=== PATIENT | female | born 1975 | race Caucasian/White ===

== ENCOUNTER 2024-01-03 10:58 | Emergency (ER) | payer OTHER, BC, SELFPAY ==
[2024-01-03 11:07] VITALS: BP 123/83; PULSE 104; RESP 22; TEMP 36.7; O2SAT 97; BMI 31.0
--- NOTE | 2024-01-03 11:14 | ED_ITS ---
HPI - Extremity Injury (Lower) General Time Seen by Provider: 11:14 Date Seen: 01/03/24 Chief Complaint: Extremity Pain/Injury, Lower Stated Complaint: fall/ bi-lateral ankle injury Time Seen by Provider: 01/03/24 11:13 Source: patient and RN notes reviewed Mode of arrival: wheelchair Limitations: no limitations History of Present Illness HPI Narrative: Tata is a 48-year-old female coming in with bilateral ankle pain, left greater than right. Just prior to arrival she missed a step going down stairs and when she landed, felt a snap in left ankle, injured the right ankle as well. She put ice on these immediately. Nothing else was injured, did not hit her head, no chest pain, no chest wall pain, no arm pain. She did not injure anything else. Related Data Home Medications ?Medication ?Instructions ?Recorded ?Confirmed bupropion HCl PO 01/03/24 escitalopram oxalate 20 mg tablet 20 mg PO DAILY 01/03/24 01/03/24 (Lexapro) Allergies Allergy/AdvReac Type Severity Reaction Status Date / Time No Known Drug Allergies Allergy Verified 01/03/24 11:11 Review of Systems Narrative: As per HPI. PFSH PFS Social History Smoking Status: Never smoker Do you use any of these nicotine containing products: None Non-prescribed substance use: denies use service: Yes Exam Const: Vital Signs, click to edit/add: Vital Signs - 24 hr 01/03/24 11:07 Temperature 98.1 F Pulse Rate [Pulse Oximeter] 104 H Respiratory Rate 22 Blood Pressure [Le ft Upper Arm] 123/83 Pulse Oximetry 97 Oxygen Delivery Me thod Room Air Tata is a very pleasant 48-year-old female that is mildly tearful but alert, interactive, no apparent distress. She has obvious lateral bruising and swelling over the lateral malleolus on the left ankle. There is mild swelling anterior to her lateral malleolus on the right ankle. She does demonstrate some mild range of motion the right ankle, both have intact pulses in normal distal sensation. She is definitely swollen, does not want to move her left ankle. There is no actual joint effusion along the anterior ankle mortise. She denies pain above the ankles into the lower legs or knees, pain is limited to her ankles. Documenting provider has reviewed patient's vital signs: yes Course Course ED Course: Will obtain x-ray imaging to rule out fractures. Do suspect there is likely a fracture in her left ankle, right certainly could easily be a sprain. Reevaluation(s) Time of Reevaluation #1: 12:44 Reevaluation #1: Have reviewed the x-ray findings with patient. There are no active fractures noted. She has bilateral lateral sprains, left worse than right. She states her right ankle really isn't even bothering her anymore. She does have significant swelling ecchymosis over the lateral malleolus on the left ankle. She is having quite a bit of pain, we will see if she drives benefit from the cam walker. Vital Signs Vital signs: Initial Vital Signs Temperature 98.1 F 01/03/24 11:07 Temperature Source Temporal Artery Scan 01/03/24 11:07 Pulse Rate 104 H 01/03/24 11:07 Pulse Rhythm Regular 01/03/24 11:07 Respiratory Rate 22 01/03/24 11:07 Blood Pressure 123/83 01/03/24 11:07 Blood Pressure Mean 96 01/03/24 11:07 Blood Pressure Position Sitting 01/03/24 11:07 Pulse Oximetry 97 01/03/24 11:07 Oxygen Delivery Method Room Air 01/03/24 11:07 Vital Signs Temperature 98.1 F 01/03/24 11:07 Pulse Rate 104 H 01/03/24 11:07 Respiratory Rate 22 01/03/24 11:07 Blood Pressure 123/83 01/03/24 11:07 Pulse Oximetry 97 01/03/24 11:07 Oxygen Delivery Method Room Air 01/03/24 11:07 Temperature 98.1 F 01/03/24 11:07 Pulse Rate 104 H 01/03/24 11:07 Respiratory Rate 22 01/03/24 11:07 Blood Pressure 123/83 01/03/24 11:07 Pulse Oximetry 97 01/03/24 11:07 Oxygen Delivery Method Room Air 01/03/24 11:07 MDM - Extremity Injury (Lower) Imaging Data XR bilateral ankles: Attestation: I have reviewed the pertinent imaging results. Radiologist's impression: Patient: TATA FERRARI Facility:[facility] Patient ID:?[id number] Site Patient ID:?[id number]. Site :?[id number] Study:?XRay-Extremity Left Ankle 3V-01/03/2024 11:41:44 AM Ordering Physician:?Richmond Bowen Final Report: Indication: Injury and pain Technique: Left ankle 3 views. Comparison: None Findings: Chronic ossicle inferior to the lateral malleolus. No acute fracture. Bone island in the distal tibia. Lateral soft tissue swelling. Impression: Chronic incidental ossicle. No acute fracture. Dictated by Dao Bradshaw MD @ 01/03/2024 12:04:19 PM (Electronic Signature) Patient: TATA FERRARI Facility:?[facility] Patient ID:?[id number] Site Patient ID:?[id number]. Site :?[id number] Study:?XRay-Extremity Right Ankle 3V-01/03/2024 11:42:05 AM Ordering Physician:?Richmond Bowen Final Report: Indication: Injury and pain Technique: Right ankle 3 views. Comparison: None Findings: Bones: Alignment is normal. No fractures or bone lesions. Joint spaces: Unremarkable. Soft tissues: Unremarkable. Impression: No sign of acute injury. Dictated by Dao Bradshaw MD @ 01/03/2024 12:05:22 PM (Electronic Signature) Discharge Plan Discharge Clinical Impression: Ankle sprain and strain Instructions: Ankle Sprain (ED), P.R.I.C.E. Treatment (ED) Additional Instructions: Use cam walker is needed initially for pain-free ambulation. You can wean out of this boot as soon as you are able to. May need to go to some type of compression such as an Joseph wrap or an [id number] ankle brace old in drug store. Ice, elevate as much as able to to help decrease pain and swelling. Can use Tylenol and ibuprofen as needed for pain control. If you are not improving over the next week or have further concerns, please seek re-evaluation. Activity Level: Activity as Tolerated Prescriptions: No Action escitalopram oxalate [Lexapro] 20 mg tablet 20 mg PO DAILY bupropion HCl [Wellbutrin SR] PO Follow Up/Referrals: Post,Vic M, ELECTRICIAN TECHNICIAN [Primary Care Provider] - Stand Alone Forms: MyHealth Info Instructions
--- NOTE | 2024-01-03 11:24 | CRLHL7_ITS ---
For Patients: As a result of the Century Cures Act, medical imaging exams and procedure reports are released immediately into your electronic medical record. You may view this report before your referring provider. If you have questions, please contact your health care provider. Indication: Injury and pain Technique: Left ankle 3 views. Comparison: None Findings: Chronic ossicle inferior to the lateral malleolus. No acute fracture. Bone island in the distal tibia. Lateral soft tissue swelling. Impression: Chronic incidental ossicle. No acute fracture. Dictated by Dao Bradshaw MD @ 01/03/2024 12:04:19 PM (Electronically Signed)
--- NOTE | 2024-01-03 11:24 | CRLHL7_ITS ---
For Patients: As a result of the Cures Act, medical imaging exams and procedure reports are released immediately into your electronic medical record. You may view this report before your referring provider. If you have questions, please contact your health care provider. Indication: Injury and pain Technique: Right ankle 3 views. Comparison: None Findings: Bones: Alignment is normal. No fractures or bone lesions. Joint spaces: Unremarkable. Soft tissues: Unremarkable. Impression: No sign of acute injury. Dictated by Dao Bradshaw MD @ 01/03/2024 12:05:22 PM (Electronically Signed)
== END 2024-01-03 13:05 | disposition home or self-care (01) ==
LOC: ED 11:48
PROVIDERS: Emergency Provider Family Medicine; PCP Nurse Practitioner Family
DX: S93.402A Sprain of unspecified ligament of left ankle, initial encounter (principal); W10.9XXA Fall (on) (from) unspecified stairs and steps, initial encounter; S93.401A Sprain of unspecified ligament of right ankle, initial encounter
CPT/HCPCS: 73610; 99283

== ENCOUNTER 2024-01-20 07:03 | Outpatient (CLI) | payer OTHER, BC, SELFPAY ==
--- NOTE | 2024-01-20 07:15 | MR_ITS ---
[address] [address] Phone:?[phone] Fax:?[phone] Referring Physician Information: Sierra Silva [address] [facility] [address] Phone:?[phone] Fax:?[phone] Patient:Dinh Murphy D.O.B:?1975 Sex:?Female Phone:?[phone] [facility] MRN:?[id number] Exam Date:?01/20/2024 EXAM: MRI of the LEFT ANKLE CLINICAL HISTORY: Ongoing left ankle pain. Reported previous injury. Evaluate for occult fracture. Evaluate the articular cartilage. COMPARISONS: Plain radiographs 01/10/2024 and 01/03/2024. TECHNICAL: MRI sequences of the left ankle: Axials: PD, T2FS Coronals: PD, T2FS Sagittals: PD, T2, STIR Axial oblique: PDFS Sedation: None Contrast: None FINDINGS: Joints and osseous structures: A 5 x 6 x 8 mm ossification adjacent to the distal fibular tip is consistent with sequela of previous anterior talofibular ligament tear/avulsion injury. No subluxation, dislocation, tarsal coalition, or erosive change is seen. There is a moderate tibiotalar joint effusion. There is a moderate posterior subtalar joint effusion. A small focus of edema-like signal within the medial tubercle of the posterior talar process may represent a bone marrow contusion but is nonspecific. There is a 2 x 2 mm focus of subtle subchondral edema-like signal within the medial talar dome measuring 2 mm in depth. No discrete overlying chondral defect is seen although the cartilage is not optimally evaluated by this nonarthrogram study Ligaments: Syndesmotic: The anterior inferior tibiofibular, posterior inferior tibiofibular, and inferior transverse ligaments are intact. Anterior talofibular: Marked ill-definition, attenuation, and irregularity. A 5 x 2 mm focus of low signal in the region of the chronically torn anterior talofibular ligament may reflect a piece of torn ligamentous tissue although an intra-articular body is not excluded. This is best seen on coronal images 16 and 17. Calcaneofibular: Thickening and irregularity of the proximal portion of the calcaneofibular ligament. Posterior talofibular: Intact. Deltoid: Sequelae of chronic sprain injuries of both the superficial and deep layers of the deltoid ligament. Spring: Unremarkable. Sinus tarsi: Intact lateral cervical and medial interosseous ligaments. Bifurcate: Unremarkable lateral calcaneonavicular and medial calcaneocuboid ligaments. Calcaneocuboid: Unremarkable medial, dorsolateral and plantar ligaments. Lisfranc ligament complex: Intact. Flexor tendons: Posterior tibial: Mild tenosynovitis. Flexor digitorum longus: Slight tenosynovitis. Flexor hallucis longus: Intact. Peroneal tendons: There is mild fraying/mild tendinopathy of the peroneus longus tendon between the distal fibular tip and calcaneal peroneal tubercle. There is mild peroneal tenosynovitis. No lateral subluxation. Extensor tendons: Tibialis anterior: Intact. Extensor hallucis longus: Intact. Extensor digitorum longus: Intact. Achilles tendon: Intact. There is a low-lying soleus muscle. Plantar aponeurosis: Unremarkable. Sinus Tarsi:?The sinus tarsi fat is intact. Tarsal tunnel: Unremarkable. IMPRESSION: 1. Marked ill-definition, attenuation, and irregularity of the anterior talofibular ligament and a 5 x 6 x 8 mm ossification adjacent to the distal fibular tip are findings consistent with sequelae of chronic high-grade tear injury. Thickening and irregularity of the proximal portion of the calcaneofibular ligament are findings consistent with sequela of chronic sprain injury. Correlate with any clinical evidence of lateral ligamentous instability. 2. Mild peroneal tenosynovitis. Mild fraying/mild tendinopathy of the peroneus longus tendon between the distal fibular tip and calcaneal peroneal tubercle. 3. Sequelae of chronic sprain injuries of both the deep and superficial layers of the deltoid ligament. 4. Mild posterior tibialis tenosynovitis. 5. Slight flexor digitorum longus tenosynovitis. 6. Moderate tibiotalar joint effusion. A 5 x 2 mm focus of low signal in the region of the chronically torn anterior talofibular ligament may reflect a piece of torn ligamentous tissue although intra-articular body is not excluded. Moderate posterior subtalar joint effusion. 7. Tiny focus of subtle subchondral edema-like signal within the medial talar dome without evidence of discrete overlying chondral defect although the cartilage is not optimally evaluated by this nonarthrogram study. 8. A small focus of edema-like signal within the medial tubercle of the posterior talar process may represent a bone marrow contusion but is nonspecific. 9. Low-lying soleus muscle. Intact Achilles tendon. RCB Electronically signed on 01/21/2024 10:02:00 AM by Kane Pena M.D.
== END 2024-01-20 07:04 | disposition home or self-care (01) ==
LOC: MRI 07:05
PROVIDERS: PCP Nurse Practitioner Family; Visit Provider Physician Assistant
DX: M25.572 Pain in left ankle and joints of left foot (principal); S93.402S Sprain of unspecified ligament of left ankle, sequela; M65.872 Other synovitis and tenosynovitis, left ankle and foot; M25.472 Effusion, left ankle; S99.912A Unspecified injury of left ankle, initial encounter
CPT/HCPCS: 73721

== ENCOUNTER 2024-04-24 07:30 | Outpatient (RCR) | payer OTHER, BC, SELFPAY | END 2024-06-01 14:02 | disposition home or self-care (01) | PROVIDERS: PCP Nurse Practitioner Family; Visit Provider Physician Assistant | DX: S93.409A Sprain of unspecified ligament of unspecified ankle, initial encounter (principal); S96.919A Strain of unspecified muscle and tendon at ankle and foot level, unspecified foot, initial encounter; Z51.89 Encounter for other specified aftercare | CPT/HCPCS: 97110; 97140; 97161 ==